=== PATIENT | female | born 1965 | race Caucasian/White ===

== ENCOUNTER 2017-10-06 16:04 | Emergency (ER) ==
[2017-10-06 16:15] VITALS: BP 154/93; TEMP 100.3; BMI 27.4
[2017-10-06] MEDS ORDERED: MORPHINE 10 MG/ML SYRINGE IVP STA (16:17)
[2017-10-06] MEDS ORDERED: ZOFRAN 4 MG/2 ML IVP STA (16:17)
--- NOTE | 2017-10-06 17:07 | CT ---
EXAM: CT of the abdomen pelvis without contrast History: Abdominal pain. Technique: Multiplanar CT images through the abdomen pelvis were obtained without the administration of IV contrast Findings: Lung bases are free of consolidation. No acute osseous abnormalities. No discrete gallstones identified by CT. No renal stones and no hydronephrosis. Adrenal glands are u nremarkable. No peripancreatic inflammation. Mild atherosclerotic vascular calcifications. The aurelia endix is normal. Stomach is mild to moderately distended with fluid and debris. No bowel obstructio n. Nondilated fluid filled loops of small bowel. No free air and no ascites. No bladder wall thick ening. Adnexal structures appear appropriate for patient's age. Trace pelvic fluid is nonspecific. Spleen is unremarkable. 1 cm low-density lesion within the liver between the left and right hepatic lobes. Impression: 1. No acute intra-abdominal or pelvic process. 2. Trace nonspecific pelvic fluid. 3. Indeterminate 1 cm low-density liver lesion is most likely a small cyst or benign hemangioma.
--- NOTE | 2017-10-06 18:14 | ED.PDOC ---
General ED Provider: Dr. SHABNAM JOHNS Chief Complaint: Abdominal Pain Stated Complaint: ABDOMINAL PAIN Time Seen by Physician: 16:08 (SEEN WITH NURSING STAFF ) Mode of Arrival: Walk-In Information Source: Patient, Family Exam Limitations: No limitations Primary Care Provider: DALILA MIRANDA Nursing and Triage Documentation Reviewed and Agree: Yes Reviewed sepsis parameters & appropriate labs ordered?: Yes System Inflammatory Response Syndrome: Not Applicable Sepsis Protocol: For patient's 13 years and over: Temp is 96.8 and below OR 101 and greater Pulse >90 BPM Resp >20/minute Acutely Altered Mental Status Are patient's symptoms suggestive of a new infection, such as: -Pneumonia -Skin, Soft Tissue -Endocarditis -UTI -Bone, Joint Infection -Implantable Device -Acute Abdominal Infection -Wound Infection -Meningitis -Blood Stream Catheter Infection -Unknown System Inflammatory Response Syndrome: Not Applicable GI Complaint Exam - Abdominal Pain Complaint/Exam Onset: Sudden Duration: 3PM PT PRESENTED ABOUT 1 HR LATER Symptoms Are: Still present Timing: Constant Initial Severity: Severe Current Severity: Severe Location of Pain: Diffuse Character: Reports: Cramping Aggravating: Reports: None Alleviating: Reports: None (LAST MEAL 1:20 PM) Associated Signs and Symptoms: Denies: Diaphoresis, Fever, Cough, Chest pain, Dizziness, Back pain, Constipation, Blood in stool, Dysuria, Urinary frequency, Decreased urine output, Decreased appetite, Vaginal bleeding, Vaginal discharge , Nausea, Vomiting, Diarrhea, Sore throat, Decreased activity Related History: Reports: Similar episode AAA Risk Factors: Reports: Smoking Cardiac Risk Factors: Reports: Smoking Ectopic Risk Factors: Reports: None Ovarian Torsion Risk Factors: Reports: None Surgical Obstruction Risk Factors: Reports: None Related Surgical History: Reports: None Patient Rh Status: Unknown Differential Diagnoses: Appendicitis, Bowel Obstruction, Constipation, Pancreatitis Quality Indicators for AMI: EKG in 10min. Quality Indicators for Cardiac Chest Pain: EKG in 10min. Quality Indicator For Non-Traumatic Chest Pain/Syncope: EKG Performed Review of Systems - Review Of Systems Constitutional: Reports: No symptoms Eyes: Reports: No symptoms Ears, Nose, Mouth, Throat: Reports: No symptoms Respiratory: Reports: No symptoms Cardiac: Reports: No symptoms GI: Reports: Abdominal pain : Reports: No symptoms Musculoskeletal: Reports: No symptoms Skin: Reports: No symptoms Neurological: Reports: No symptoms Endocrine: Reports: No symptoms Hematologic/Lymphatic: Reports: No symptoms All Other Systems: Reviewed and Negative Past Medical History - Past Medical History Previously Healthy: Yes Endocrine: Reports: None Cardiovascular: Reports: None Respiratory: Reports: None Hematological: Reports: None Gastrointestinal: Reports: None Genitourinary: Reports: None Neuro/Psych: Reports: None Musculoskeletal: Reports: None Cancer: Reports: None Last Menstrual Period: 1 week ago - Surgical History General Surgical History: Reports: None - Family History Family History: Reports: None - Social History Smoking Status: Current every day smoker Hx Substance Use: No Alcohol Screening: None - Immunizations Tetanus Shot up to Date: Yes Physical Exam - Physical Exam Appearance: Well-appearing, No pain distress, Well-nourished Eyes: BRIANNA, EOMI, Conjunctiva clear ENT: Ears normal, Nose normal, Oropharynx normal Respiratory: Airway patent, Breath sounds clear, Breath sounds equal, Respirations nonlabored Cardiovascular: RRR, Pulses normal, No rub, No murmur GI/: Tender (DIFFUSELY) Musculoskeletal: Normal strength, ROM intact, No edema, No calf tenderness Skin: Warm, Dry, Normal color Neurological: Sensation intact, Motor intact, Reflexes intact, Cranial nerves intact, Alert, Oriented Psychiatric: Affect appropriate, Mood appropriate Interpretation - Radiology Interpretation Radiology Interpretation By: Radiologist Radiology Results: No acute changes Physician Notification - Case Discussed Physician Notified: BRINA Time of Notification: 18:29 ( WILL ACCEPT THE PT IN CDONSULT MUST SPEAK TO HOSPITALIST ) Critical Care Note - Critical Care Note Total Time (mins): 0 Course - Course Hematology/Chemistry: 10/06/17 16:20 10/06/17 16:20 Orders, Labs, Meds: Lab Review 10/06/17 10/06/17 10/06/17 16:20 16:20 16:45 WBC 17.50 H RBC 4.02 L Hgb 13.0 Hct 37.7 MCV 93.8 MCH 32.3 H MCHC 34.5 RDW Coeff of Charley 13.7 Plt Count 331 Immature Gran % (Auto) 0.5 Neut % (Auto) 86.6 Lymph % (Auto) 6.9 L Bee % (Auto) 5.4 Eos % (Auto) 0.4 Baso % (Auto) 0.2 Immature Gran # (Auto) 0.1 Neut # 15.2 H Lymph # 1.2 Bee # 1.0 Eos # 0.1 Baso # 0.0 Sodium 139 Potassium 3.6 Chloride 104 Carbon Dioxide 22 Anion Gap 16.6 BUN 14 Creatinine 0.72 Estimated GFR (MDRD) 84.00 BUN/Creatinine Ratio 19.44 Glucose 128 H Calcium 9.2 Total Bilirubin 0.3 AST 17 ALT 25 Alkaline Phosphatase 68 Total Protein 7.8 Albumin 4.1 Globulin 3.7 Albumin/Globulin Ratio 1.11 Amylase 65 Lipase 13 Urine Color Yellow Urine Clarity Clear Urine pH 5.0 Ur Specific [place] 1.025 Urine Protein Negative Urine Glucose (UA) Negative Urine Ketones Trace Urine Blood Trace-intact Urine Nitrite Negative Urine Bilirubin Negative Urine Urobilinogen 0.2 Ur Leukocyte Esterase Negative Urine Microscopic RBC 0-2 Urine Microscopic WBC 2-5 Ur Squamous Epith Cells Not present Ur Transition Epith Cell 0-2 Urine Bacteria Trace Urine Mucus Trace Orders Category Date Time Status EKG-(ED ONLY) Stat CARDIO 10/06/17 16:16 Completed ED IV/MEDIPORT/POWERPORT .ONCE EMERGENCY 10/06/17 16:16 Active AMYLASE Stat LAB 10/06/17 16:20 Completed CBC W/ AUTO DIFF Stat LAB 10/06/17 16:20 Completed COMPREHENSIVE METABOLIC PANEL Stat LAB 10/06/17 16:20 Completed LIPASE Stat LAB 10/06/17 16:20 Completed URINALYSIS C & S IF INDICATED Stat LAB 10/05/17 16:48 Completed 0.9 % Sodium Chloride [Saline Flush] MEDS 10/06/17 16:16 Active 1 syr IVF PRN PRN Morphine Sulfate [Morphine 10 mg/ml Syringe] MEDS 10/06/17 16:17 Discontinued 4 mg IVP ONCE STA Ondansetron HCl/Pf [Zofran 4 mg/2 ml] MEDS 10/06/17 16:17 Discontinued 4 mg IVP ONCE STA CT ABDOMEN/PELVIS WO CONTRAST Stat RADS 10/06/17 16:16 Completed Medications Generic Name Dose Route Start Last Admin Trade Name Freq PRN Reason Stop Dose Admin Sodium Chloride 1 syr 10/06/17 16:16 10/06/17 16:27 Saline Flush IVF 1 syr PRN PRN Administration To flush IV Discontinued Medications Generic Name Dose Route Start Last Admin Trade Name Freq PRN Reason Stop Dose Admin Morphine Sulfate 4 mg 10/06/17 16:17 10/06/17 16:27 Morphine 10 Mg/Ml Syringe IVP 10/06/17 16:18 10 mg ONCE STA Administration Ondansetron HCl 4 mg 10/06/17 16:17 10/06/17 16:27 Zofran 4 Mg/2 Ml IVP 10/06/17 16:18 4 mg ONCE STA Administration Vital Signs: Temp Pulse Resp BP Pulse Ox 10/06/17 16:05 100.3 F H 84 22 154/93 H 91 L Departure - Departure Time of Disposition: 19:00 (SPOKE TO THE SURGEONS INPUT DISCUSSED P) Disposition: TSF SHORT-TRM HOSP Discharge Problem: Abdominal pain Instructions: Abdominal Pain (ED) Condition: Good Pt referred to PMD for follow-up: Yes IPMP verified?: Yes Additional Instructions: Please call your Family Physician as soon as possible to schedule a follow-up appointment. Allergies/Adverse Reactions: Allergies penicillin G Adverse Reaction (Verified 10/06/17 16:10) Home Medications: Ambulatory Orders 1 [No Reported Medications] 10/06/17 Disposition Discussed With: Patient
== END 2017-10-06 21:50 | disposition short-term general hospital (02) ==
LOC: ED 16:04
DX: R10.9 Unspecified abdominal pain (principal); F17.210 Nicotine dependence, cigarettes, uncomplicated; D72.829 Elevated white blood cell count, unspecified
CPT/HCPCS: 36415; 80053; 81001; 82150; 83690; 85025; 93005; 93010; 96375; 99285